=== PATIENT | female | born 1955 | race Caucasian/White ===

== ENCOUNTER 2017-03-24 09:21 | Inpatient (IN) | payer OTHER ==
[2017-03-25] MEDS ORDERED: TRANEXAMIC ACID 1,000 MG in NS 100 ML IV ONE (06:00)
[2017-03-25] MEDS ORDERED: BUPIVACAINE 0.25% 30 ML SDV ONE (10:00)
[2017-03-25] MEDS ORDERED: CHLORHEXIDINE GLUC HIBICLENS 118 ML BTL TP ONE (10:00)
[2017-03-25] MEDS ORDERED: THROMBIN (BOVINE) 20,000 UNIT VIAL TP ONE ×2 (10:00→13:57)
[2017-03-25] MEDS ORDERED: BACITRACIN 50,000 UNITS/10 ML SYR IRR ONE (10:01)
[2017-03-25] MEDS ORDERED: CITRATE DEXTROSE SOLN 500 ML BAG ONE (10:01)
[2017-03-25] MEDS ORDERED: morphINE PF 5 MG/10 ML INJ IT ONE (10:25)
[2017-03-25] MEDS ORDERED: ceFAZolin 2 GM/DEXTROSE 100 ML IV ONE (10:25)
[2017-03-25] MEDS ORDERED: fentaNYL 100 MCG/2 ML INJ IT ONE (10:25)
[2017-03-25] MEDS ORDERED: LIDOCAINE 1% 2 ML INJ ID PRN (10:26)
[2017-03-25] MEDS ORDERED: LR 1,000 ML IV ONE (10:26)
[2017-03-25] MEDS ORDERED: VANCOMYCIN HCL/NORMAL SALINE 250 ML IV ONE (11:30)
[2017-03-25] MEDS ORDERED: MIDAZOLAM 2 MG/2 ML VIAL IVP ONE (12:07)
--- NOTE | 2017-03-25 12:07 | PDANEPAE ---
ANE History of Present Illness TLIF L3-4, hardware removal ANE Past Medical History - Cardiovascular History Hx Hypertension: No Hx Arrhythmias: No Hx Chest Pain: No Hx Coronary Artery / Peripheral Vascular Disease: No Hx CHF / Valvular Disease: No Hx Palpitations: No Cardiovascular History Comment: on Lipitor for HPL - Pulmonary History Hx COPD: No Hx Asthma/Reactive Airway Disease: No Hx Recent Upper Respiratory Infection: No Hx Oxygen in Use at Home: No Hx Sleep Apnea: No Sleep Apnea Screening Result - Last Documented: Negative - Neurologic History Hx Cerebrovascular Accident: No Hx Seizures: No Hx Dementia: No Neurologic History Comment: low back pain radiates down L leg to knee, occ below knee. Numbness noted L ouitside of knee, around ankle and top of L ft (s/ p L ankle sx) - Endocrine History Hx Diabetes: No Hypothyroid: Yes Endocrine History Comment: hypothyroid - Renal History Hx Renal Disorders: No - Liver History Hx Hepatic Disorders: No - Neurological & Psychiatric Hx Hx Neurological and Psychiatric Disorders: Yes - Cancer History Hx Cancer: No - Congenital Disorder History Hx Congenital Disorders: No - GI History GERD: no Hx Gastrointestinal Disorders: No - Other Health History Other Health History: none - Chronic Pain History Chronic Pain: Yes (back/L leg) - Surgical History Prior Surgeries: ORIF triple fx L [id number]. L4/L5 fusion . bilat Great toe sx. Lasik-1999 ANE Review of Systems Review of Systems: - Exercise capacity METS (RN): 4 METS ANE Patient History - Allergies Allergies/Adverse Reactions: Penicillins Allergy (Verified 03/11/17 10:54) Swelling/neck,face,throat - Home Medications Home Medications: Atorvastatin Calcium [Lipitor 20 mg (*)] 20 mg PO HS 03/07/17 [Last Taken Unknown] Hydrocodone/Acetaminophen [[place] 5/325 (*)] 1 each PO Q8HRS PRN 03/07/17 [Last Taken Unknown] Ibuprofen [Motrin (*)] 200 mg PO HS PRN 03/07/17 [Last Taken Unknown] LORazepam [Ativan (*)] 1 mg PO HS PRN 03/07/17 [Last Taken Unknown] Levothyroxine [Synthroid 50 mcg (*)] 50 mcg PO DAILY06 03/07/17 [Last Taken Unknown] - NPO status NPO Since - Liquids (Date): 03/25/17 NPO Since - Liquids (Time): 07:30 NPO Since - Solids (Date): 03/24/17 NPO Since - Solids (Time): 20:00 - Smoking Hx Smoking Status: Never smoked ANE Labs/Vital Signs - Vital Signs Blood Pressure: 137/78 Heart Rate: 75 Respiratory Rate: 16 O2 Sat (%): 94 Height: 167.64 cm Weight: 65.317 kg ANE Physical Exam - Airway Neck exam: FROM Mallampati Score: Class 1 Mouth exam: normal dental/mouth exam (Lower front implant) - Pulmonary Pulmonary: clear to auscultation - Cardiovascular Cardiovascular: regular rate and rhythym - ASA Status ASA Status: II ANE Anesthesia Plan Anesthesia Plan: general endotracheal anesthesia
[2017-03-25] MEDS ORDERED: fentaNYL 100 MCG/2 ML INJ ONE ×7 (12:30→17:52)
[2017-03-25] MEDS ORDERED: PROPOFOL/EMULSION 500 MG/50 ML BOTTLE IV ONE (12:30)
[2017-03-25] MEDS ORDERED: KETAMINE 100 MG/10 ML SYR ONE (12:30)
--- NOTE | 2017-03-25 12:31 | PDHPUP ---
History & Physical Update H&P update statement: This history and physical update is based on an assessment of the patient which was completed after admission or registration (within 24 hours), but prior to the surgery/procedure. H&P update: no change in patient's condition since H&P completed
[2017-03-25] MEDS ORDERED: ROCURONIUM 50 MG/5 ML VIAL ONE (12:32)
[2017-03-25] MEDS ORDERED: DEXAMETHASONE 4 MG/ML VIAL ONE (12:33)
[2017-03-25] MEDS ORDERED: PROPOFOL 200 MG/20 ML VIAL ONE (15:32)
[2017-03-25] MEDS ORDERED: ONDANSETRON 4 MG/2 ML VIAL ONE (15:44)
[2017-03-25] MEDS ORDERED: MAGNESIUM HYDROXIDE 30 ML UDCUP PO PRN (16:09)
[2017-03-25] MEDS ORDERED: LACTULOSE 20 GM/30 ML UDCUP PO PRN (16:09)
[2017-03-25] MEDS ORDERED: NALOXONE HCL 0.4 MG/ML INJ IVP PRN (16:09)
[2017-03-25] MEDS ORDERED: ONDANSETRON 4 MG/2 ML VIAL IVP PRN (16:09)
[2017-03-25] MEDS ORDERED: diphenhydrAMINE 25 MG CAP PO PRN (16:09)
[2017-03-25] MEDS ORDERED: morphINE PCA 30 MG/30 ML PCA IV PRN (16:09)
--- NOTE | 2017-03-25 16:09 | POSTOPPROG ---
Post Op Note Date of Operation: 03/25/17 Surgeon: Ramón Moody Ophthalmologist Retina Specialist: Zachary Anesthesiologist: Russel Valverde Anesthesia: GET(General Endotracheal) Pre-op Diagnosis: L3/4 DjD, Stenosis, HNP Post-op Diagnosis: same Indication: Low back pain and left leg pain Procedure: L4/5 Hardware removal, L3/4 tlif, L3-5 instrumentation Findings: L3/4 severe DJD, right sided HNP, Spinal stenosis Inf/Abcess present in the surg proc area at time of surgery?: No EBL: 100-500 Complications: none Drains: [place] (to bulb suction)
[2017-03-25] MEDS ORDERED: NS 1,000 ML IV SCH (16:15)
--- NOTE | 2017-03-25 16:20 | SOAPPROG ---
SOAP Progress Note Assessment/Plan: POST OP CHECK: Assessment: doing well s/p L3/4 TLIF and L4/5 Hardware removal and L3-5 instrumentation Plan: CPM in PACU, RAY to bulb suction transfer to floor per protocol Subjective: awake, alert, comfortable Objective: Vital Signs Temp Pulse Resp BP Pulse Ox 36.6 C 75 16 137/78 H 94 03/25/17 10:47 03/25/17 12:07 03/25/17 12:07 03/25/17 12:07 03/25/17 12:07 Neuro: ALLEN, Sens +LT Follows commands x 4 speech clear current Vitals: BP:105/58 HR: 94 02: 98% ICD10 Worksheet Patient Problems: Problems Problem Status Onset Degenerative disc disease Acute - ICD10 Problem Qualifiers (1) Degenerative disc disease Qualifiers: Spinal region: lumbar Qualified Code(s): M51.36 - Other intervertebral disc degeneration, lumbar region
[2017-03-25] MEDS ORDERED: HYDROmorphONE/DILAUDID 1 MG/ML INJ ONE (16:24)
[2017-03-25] MEDS: fentaNYL 100 MCG/2 ML INJ IVP PRN ×4 (16:28→17:52)
[2017-03-25] MEDS: HYDROmorphONE/DILAUDID 1 MG/ML INJ IVP PRN ×3 (16:30→17:10)
--- NOTE | 2017-03-25 17:38 | POSTANESTH ---
Post Anesthetic Evaluation Cardiovascular Status: Normal, Stable Respiratory Status: Normal, Stable Level of Consciousness/Mental Status: Can Participate in Eval Pain Control: Adequate, Prn Tx Ordered Nausea/Vomiting Control: Adequate, Prn Tx Ordered Complications Possibly Related to Anesthesia: None Noted
[2017-03-25] MEDS ORDERED: DIAZEPAM 10 MG/2 ML SYR ONE (17:42)
[2017-03-25] MEDS: DIAZEPAM 10 MG/2 ML SYR IVP PRN (17:43)
[2017-03-25] MEDS: POLYETHYLENE GLYCOL 3350 17 GM PKT PO SCH (20:19)
[2017-03-25] MEDS: METHOCARBAMOL 750 MG TAB PO PRN (20:20)
[2017-03-25] MEDS: SENNOSIDES/DOCUSATE SODIUM TAB PO SCH (20:20)
[2017-03-25] MEDS: ATORVASTATIN CALCIUM 20 MG TAB PO SCH (20:20)
[2017-03-25] MEDS: FAMOTIDINE 20 MG TAB PO SCH (20:20)
[2017-03-25] MEDS: oxyCODONE IR 5 MG TAB PO PRN (20:21)
[2017-03-25] MEDS: morphINE SR 15 MG TAB PO SCH (20:21)
[2017-03-25] MEDS: ACETAMINOPHEN 500 MG TAB PO SCH (20:22)
--- NOTE | 2017-03-25 23:15 | GOP ---
[f rep st] OPERATIVE REPORT DATE OF OPERATION: 03/25/2017 SURGEON: Ramón Moody MD NEUROSURGEON: Ramón Moody MD SUPPLY CONTROLLER: JOSEPH Dougherty ANESTHESIA: General endotracheal. PREOPERATIVE DIAGNOSIS: Severe adjacent level degeneration at L3-4 with critical spinal stenosis, st atus post prior L4-5 instrumented decompression and fusion. Retained hardware. Intractable back leslie n. Intractable left lower extremity radicular pain. Failed conservative care. POSTOPERATIVE DIAGNOSIS: Severe adjacent level degeneration at L3-4 with critical spinal stenosis, s tatus post prior L4-5 instrumented decompression and fusion. Retained hardware. Intractable back pa in. Intractable left lower extremity radicular pain. Failed conservative care. PROCEDURE PERFORMED: Removal of posterior nonsegmental (pedicle screw and Spire device) fixation at L4-5 with left-sided L3-4 far lateral transpedicular decompression and a redo left L4-5 posterior hem ilaminectomy and mesial facetectomy and foraminotomy. L3 through 5 posterior segmental (pedicle scre w) fixation and posterolateral fusion with local autograft and bone morphogenic protein. L3-4 observer electrical prospecting ior/transforaminal lumbar interbody fusion with 2 structural PEEK interbody spacers, local autograft and bone morphogenic protein. Use of intraoperative microscopy, fluoroscopy, and computer volumetric stereotactic navigation with intraoperative neurophysiologic testing. Injection of intrathecal narc otic analgesics for postoperative pain control. FINDINGS: ESTIMATED BLOOD LOSS: 250 cc. INDICATIONS: The patient is a 61-year-old woman with intractable back pain and left lower extremity radicular discomfort and bilateral neurogenic claudication. She has a prior instrumented L4-5 fusion with severe adjacent level degeneration and disk space collapse and critical spinal stenosis. She p resents now for removal and replacement of instrumentation and extension of fusion and decompression and stabilization after failing conservative care. DESCRIPTION OF PROCEDURE: After informed consent was obtained, patient was taken to the operating ro om and placed in the prone position on the [place] table. The lumbosacral area was prepped and drape d in a sterile fashion. After fluoroscopic localization of the correct levels, the subcutaneous and intramuscular tissues were infiltrated with local anesthesia. A midline linear incision was then cre ated from approximately L3 through L5. This was carried down to the fascial layer, which was then in cised using monopolar electrocautery and carried in a subperiosteal plane along the spinous processes and out the lamina bilaterally. The prior instrumentation at L4-5 was carefully removed in standard fashion. The prior fusion was explored and inspected. The microscope was brought in and a left-jamee ed far lateral transpedicular decompression was performed with complete unroofing of the facet joint at the L3-4 level and decompression of the L3 and L4 neural foramina. A redo posterior hemilaminecto my and foraminotomy were performed on the left at the L4-5 level under high-power microscopy. Follow ing adequate decompression, the wishkicker neuronavigational system was brought in and using computer vo lumetric stereotactic navigation, pedicle screws were placed at L3, L4, and L5 on the left and L3 and L4 on the right. The rods were then placed and secured under distraction at the L3-4 level during w hich time a complete diskectomy was performed with preparation of the endplates and placement of two 7 mm structural PEEK interbody spacers, local autograft, and bone morphogenic protein for an L3-4 pos terior/transforaminal lumbar interbody fusion. The screw and bert system were then placed in a slight amount of compression in order to facilitate bony union and to minimize the potential for posterior graft migration. The wound was copiously irrigated and after re-verification of good position of the screws, rods, and interbody spacers, 200 mcg of Duramorph along with 50 mcg of fentanyl were injecte d intrathecally. The subcutaneous and intramuscular tissues were re-infiltrated with local anesthesi a. The remaining lamina and facet joints on the right were extensively decorticated and the residual local autograft along with bone morphogenic protein was placed out laterally from L3 through L5 for posterolateral fusion from L3 through L5. A drain was placed and the wound was closed in a layered f ashion using interrupted Vicryl sutures followed by Steri-Strips on the skin. COMPLICATIONS: None. DISPOSITION: The patient is currently in the process of being repositioned for extubation. /[id number]/MODL
[2017-03-25] MEDS ORDERED: VANCOMYCIN HCL/NORMAL SALINE 250 ML IV SCH (23:30)
[2017-03-26] MEDS: oxyCODONE IR 5 MG TAB PO PRN ×6 (00:38→23:20)
[2017-03-26] MEDS: DIAZEPAM 10 MG/2 ML SYR IVP PRN (00:47)
[2017-03-26] MEDS: LEVOTHYROXINE 50 MCG TAB PO SCH (05:16)
[2017-03-26] MEDS: ACETAMINOPHEN 500 MG TAB PO SCH ×3 (05:16→22:34)
[2017-03-26] MEDS: METHOCARBAMOL 750 MG TAB PO PRN ×3 (05:16→23:19)
[2017-03-26 05:20] LABS: % IMMATURE GRANULYOCYTES 0.3 % (0.0-1.1); ABSOLUTE IMMATURE GRANULOCYTES 0.03 10^3/uL (0.00-0.10); ADD DIFF? NO; ADD MORPH? NO; ADD SCAN? NO; ATYPICAL LYMPHOCYTE FLAG 0 (0-99); FRAGMENT RBC FLAG 0 (0-99); HEMOGLOBIN 9.8 g/dL (12.6-16.3); LEFT SHIFT FLG 0 (0-99); LIPEMIA HEMOLYSIS FLAG 80 (0-99); MEAN CELL HEMOGLOBIN 31.4 pg (27.9-34.1); MEAN CELL HEMOGLOBIN CONCENTR. 32.7 g/dL (32.4-36.7); MEAN CELL VOLUME 96.2 fL (81.5-99.8); MEAN PLATELET VOLUME 9.7 fL (8.7-11.7); PLATELET CLUMPS FLAG 10 (0-99); PLATELET COUNT 210 10^3/uL (150-400); RED BLOOD CELL COUNT 3.12 10^6/uL (4.18-5.33); RED CELL DISTRIBUTION WIDTH 12.8 % (11.5-15.2)
[2017-03-26 05:40] LABS: ANION GAP 7 mEq/L (8-16); CALCIUM 8.9 mg/dL (8.5-10.4); CARBON DIOXIDE 22 mEq/l (22-31); CHLORIDE 103 mEq/L (97-110); CREATININE 0.8 mg/dL (0.6-1.0); GLOMERULAR FILTRATION RATE > 60; GLUCOSE 122 mg/dL (70-100); POTASSIUM 4.3 mEq/L (3.5-5.2); SODIUM 132 mEq/L (134-144)
--- NOTE | 2017-03-26 08:52 | SOAPPROG ---
SOAP Progress Note Assessment/Plan: Assessment: POD #1: doing well s/p L3/4 TLIF and L4/5 Hardware removal and L3-5 instrumentation Plan: Continue RAY to suction Lumbar xrays today PT/OT as tolerated encourage OOB frequently Lovenox starts today. follow up xrays. 03/26/17 08:49 03/26/17 08:52 Subjective: awake, alert, was up a lot last night. Objective: Vital Signs Temp Pulse Resp BP Pulse Ox 36.7 C 77 16 101/61 96 03/26/17 04:00 03/26/17 08:00 03/26/17 08:00 03/26/17 08:00 03/26/17 08:00 Laboratory Results 03/26/17 04:24 03/26/17 04:24 03/25/17 03/26/17 03/27/17 05:59 05:59 05:59 Intake Total 2804 Output Total 1710 Balance 1094 Neuro: ALLEN, sens +LT Dressing: CDI RAY: 210ml ICD10 Worksheet Patient Problems: Problems Problem Status Onset Degenerative disc disease Acute - ICD10 Problem Qualifiers (1) Degenerative disc disease Qualifiers: Spinal region: lumbar Qualified Code(s): M51.36 - Other intervertebral disc degeneration, lumbar region
[2017-03-26] MEDS: SENNOSIDES/DOCUSATE SODIUM TAB PO SCH ×2 (09:17→20:58)
[2017-03-26] MEDS: morphINE SR 15 MG TAB PO SCH ×2 (09:18→20:58)
[2017-03-26] MEDS: FAMOTIDINE 20 MG TAB PO SCH ×2 (09:18→20:58)
[2017-03-26] MEDS: ENOXAPARIN 40 MG/0.4 ML SYR SC SCH (09:19)
[2017-03-26] MEDS: POLYETHYLENE GLYCOL 3350 17 GM PKT PO SCH ×3 (09:20→22:34)
--- NOTE | 2017-03-26 16:15 | ASMTCMCOM ---
CM Note CM Note Notes: Pt had planned harware removal and TLIF. OT rec home, PT eval pending. CM to follow for d/c plan of care. Date Signed: 03/26/2017 04:14 PM Electronically Signed By:AUSTIN Castrejon
[2017-03-26] MEDS: ATORVASTATIN CALCIUM 20 MG TAB PO SCH (20:58)
[2017-03-27] MEDS: oxyCODONE IR 5 MG TAB PO PRN ×4 (03:00→22:44)
[2017-03-27] MEDS: LEVOTHYROXINE 50 MCG TAB PO SCH (05:58)
[2017-03-27] MEDS: ACETAMINOPHEN 500 MG TAB PO SCH ×3 (05:58→22:43)
[2017-03-27] MEDS: ENOXAPARIN 40 MG/0.4 ML SYR SC SCH (09:22)
[2017-03-27] MEDS: POLYETHYLENE GLYCOL 3350 17 GM PKT PO SCH ×3 (09:23→22:46)
[2017-03-27] MEDS: SENNOSIDES/DOCUSATE SODIUM TAB PO SCH ×2 (09:23→20:51)
[2017-03-27] MEDS: FAMOTIDINE 20 MG TAB PO SCH ×2 (09:23→20:49)
[2017-03-27] MEDS: morphINE SR 15 MG TAB PO SCH ×2 (09:23→20:49)
[2017-03-27] MEDS: ONDANSETRON DISINTEGRATING 4 MG TAB PO PRN ×3 (09:55→22:43)
--- NOTE | 2017-03-27 10:59 | NEUSURGPN ---
Assessment/Plan: POD #2: doing well s/p L3/4 TLIF and L4/5 Hardware removal and L3-5 instrumentation Plan: Continue RAY to suction- 160 output in last 24 hours Lumbar xrays show good hardware placement PT/OT encourage OOB frequently DVT prophy: TEDs, SCDs, Lovenox Dispo: Home tomorrow if clears therapies and doing well. Does not want to go home with drain. Discussed with Dr. Murrieta Subjective: Patient states she slept well last night. She was up with PT and OT yesterday and plans to be up more today. Left leg still has pain but is slowly improving.No BM yet. Objective: NAD, VSS Alert, awake BLE 5/5= Sensation intact to lt touch Incision dressing c/d/i - Physician Discussed Patient with DrItalo: Heidy Neurosurgery Physical Exam - Vitals, I&O, Labs I and O 03/26/17 03/27/17 03/28/17 05:59 05:59 05:59 Intake Total 2804 1850 Output Total 1710 2210 380 Balance 1094 -360 -380 Weight 65.317 kg Intake: Oral (ml) 750 1850 IV Intake (ml) 900 IV Infused (ml) 1154 Ns 1,000 ml @ 100 mls/hr 889 IV CONT BO Rx#: [id number] Vancomycin HCl/Normal 265 Saline 250 ml @ 250 mls/ hr IV Q12H BO Rx#: [id number] Output: Urine (ml) 1350 2050 350 Toilet 1350 2050 350 Estimated Blood Loss (ml) 150 RAY Drain Output (ml) 210 160 30 #1 Back [place] 210 160 30 Other: Intake Quantity Yes Yes Sufficient Number of Voids Toilet 1 1 1 Vital Signs Temp Pulse Resp BP Pulse Ox 36.7 C 85 16 119/64 96 03/27/17 08:00 03/27/17 08:00 03/27/17 08:00 03/27/17 08:00 03/27/17 08:00 Laboratory Results 03/26/17 04:24 03/26/17 04:24 ICD10 Worksheet Patient Problems: Problems Problem Status Onset Degenerative disc disease Acute
[2017-03-27] MEDS: METHOCARBAMOL 750 MG TAB PO PRN ×2 (11:43→18:31)
--- NOTE | 2017-03-27 14:47 | ASMTCMCOM ---
CM Note CM Note Notes: PT rec home. RODRICK Chavez has no concerns. Anticipate pt will d/c when medically stable, no CM d/c needs identified at this time. CM available for changes/needs. Date Signed: 03/27/2017 02:47 PM Electronically Signed By:AUSTIN Castrejon
[2017-03-27] MEDS: BISACODYL 10 MG SUPP PR PRN ×2 (15:00→18:23)
[2017-03-27] MEDS ORDERED: PROMETHAZINE HCL 25 MG/ML INJ IVP PRN (15:37)
[2017-03-27] MEDS ORDERED: PROCHLORPERAZINE MALEATE 5 MG TAB PO PRN (15:38)
[2017-03-27] MEDS: ATORVASTATIN CALCIUM 20 MG TAB PO SCH (20:51)
[2017-03-28] MEDS: ONDANSETRON DISINTEGRATING 4 MG TAB PO PRN ×2 (05:50→09:30)
[2017-03-28] MEDS: ACETAMINOPHEN 500 MG TAB PO SCH ×2 (05:50→15:17)
[2017-03-28] MEDS: LEVOTHYROXINE 50 MCG TAB PO SCH (05:50)
[2017-03-28] MEDS: oxyCODONE IR 5 MG TAB PO PRN ×4 (05:55→19:08)
--- NOTE | 2017-03-28 06:21 | SOAPPROG ---
SOAP Progress Note Assessment/Plan: Assessment: POD #3 doing well s/p L3/4 TLIF and L4/5 Hardware removal and L3-5 instrumentation Plan: repeat Na level this AM Continue RAY to suction Lumbar xrays show good hardware placement PT/OT encourage OOB frequently DVT prophy: TEDs, SCDs, Lovenox Dispo: Home today if clears therapies and doing well. 03/28/17 08:00 03/28/17 08:02 Subjective: awake, alert, comfortable Had BM yesterday as well as emesis x 2, but is feeling much better since doing so. Denies numbness, tingling or weakness today. She feels like she could go home today. Objective: Vital Signs Temp Pulse Resp BP Pulse Ox 37.0 C 84 18 111/61 94 03/27/17 23:17 03/27/17 23:17 03/27/17 23:17 03/27/17 23:17 03/27/17 23:17 Laboratory Results 03/26/17 04:24 03/26/17 04:24 03/27/17 03/28/17 03/29/17 05:59 05:59 05:59 Intake Total 1850 300 Output Total 2210 1695 Balance -360 -1395 NAD, VSS Alert, awake BLE 5/5= Sensation intact to lt touch Incision dressing c/d/i RAY:95ml ICD10 Worksheet Patient Problems: Problems Problem Status Onset Degenerative disc disease Acute - ICD10 Problem Qualifiers (1) Degenerative disc disease Qualifiers: Spinal region: lumbar Qualified Code(s): M51.36 - Other intervertebral disc degeneration, lumbar region
[2017-03-28] MEDS: POLYETHYLENE GLYCOL 3350 17 GM PKT PO SCH ×3 (09:11→22:05)
[2017-03-28] MEDS: ENOXAPARIN 40 MG/0.4 ML SYR SC SCH (09:11)
[2017-03-28] MEDS: SENNOSIDES/DOCUSATE SODIUM TAB PO SCH ×2 (09:11→22:05)
[2017-03-28] MEDS: FAMOTIDINE 20 MG TAB PO SCH ×2 (09:11→22:05)
[2017-03-28] MEDS: METHOCARBAMOL 750 MG TAB PO PRN ×3 (09:31→18:26)
[2017-03-28] MEDS: morphINE SR 15 MG TAB PO SCH ×2 (09:31→22:05)
[2017-03-28] MEDS: ATORVASTATIN CALCIUM 20 MG TAB PO SCH (22:05)
[2017-03-28] MEDS: ACETAMINOPHEN 650 MG/20.3 ML UDCUP PO SCH (22:07)
[2017-03-29] MEDS: LEVOTHYROXINE 50 MCG TAB PO SCH (05:17)
[2017-03-29] MEDS: ACETAMINOPHEN 650 MG/20.3 ML UDCUP PO SCH ×2 (05:17→13:30)
[2017-03-29] MEDS: oxyCODONE IR 5 MG TAB PO PRN ×4 (05:59→16:38)
[2017-03-29] MEDS: METHOCARBAMOL 750 MG TAB PO PRN (05:59)
--- NOTE | 2017-03-29 08:00 | NEUSURGPN ---
Assessment/Plan: POD #3: doing well s/p L3/4 TLIF and L4/5 Hardware removal and L3-5 instrumentation Plan: Continue RAY to suction, will d/c before going home today Lumbar xrays show good hardware placement PT/OT encourage OOB frequently DVT prophy: TEDs, SCDs, Lovenox Dispo: Home today vs tomorrow depending on she does with her diet and being up and out of bed. was given Rx prior to surgery Discussed with Dr. Murrieta Subjective: low back pain, nausea under better control Objective: NAD A&Ox3 MAEx4 5/ and equal in BUE and BLE. Incision c/d/i - Physician Discussed Patient with Dr.: Heidy Neurosurgery Physical Exam - Vitals, I&O, Labs I and O 03/28/17 03/29/17 03/30/17 05:59 05:59 05:59 Intake Total 300 350 Output Total 1695 130 Balance -1395 220 Intake: Oral (ml) 300 350 Output: Urine (ml) 1600 100 Toilet 1600 100 RAY Drain Output (ml) 95 30 #1 Back [place] 95 30 Other: Intake Quantity Yes Sufficient Number of Voids Toilet 2 2 Number of Stools Toilet 1 1 Vital Signs Temp Pulse Resp BP Pulse Ox 36.7 C 77 17 109/57 L 97 03/28/17 23:03 03/28/17 23:03 03/28/17 23:03 03/28/17 23:03 03/28/17 23:03 Laboratory Results 03/26/17 04:24 03/28/17 10:19 ICD10 Worksheet Patient Problems: Problems Problem Status Onset Degenerative disc disease Acute
[2017-03-29 08:45] VITALS: RESP 16
[2017-03-29] MEDS: FAMOTIDINE 20 MG TAB PO SCH (10:33)
[2017-03-29] MEDS: SENNOSIDES/DOCUSATE SODIUM TAB PO SCH (10:33)
[2017-03-29] MEDS: ENOXAPARIN 40 MG/0.4 ML SYR SC SCH (10:33)
[2017-03-29] MEDS: morphINE SR 15 MG TAB PO SCH (10:34)
[2017-03-29] MEDS: POLYETHYLENE GLYCOL 3350 17 GM PKT PO SCH ×2 (10:40→13:34)
[2017-03-29 15:11] VITALS: BP 115/66; PULSE 84; TEMP 97.7; O2SAT 95
[2017-03-29] MEDS: ONDANSETRON DISINTEGRATING 4 MG TAB PO PRN (16:37)
== END 2017-03-29 17:11 | disposition home or self-care (01) | DRG 460 ==
LOC: OBSVTOIN 03-25 10:09 → F3N 03-25 10:09 → PREINTOOBSV 03-25 14:14 → F3N 03-25 18:03
PROVIDERS: ADMIT Neurological Surgery; ATTEND Neurological Surgery
PROC: 0SG00A1 (ICD-10-PCS; principal; 2017-03-25 12:00)
PROC: 01NB0ZZ Release Lumbar Nerve, Open Approach (ICD-10-PCS; principal; 2017-03-25 12:00)
PROC: 3E0U0GB Introduction of Recombinant Bone Morphogenetic Protein into Joints, Open Approach (ICD-10-PCS; principal; 2017-03-25 12:00)
PROC: 0QP004Z Removal of Internal Fixation Device from Lumbar Vertebra, Open Approach (ICD-10-PCS; principal; 2017-03-25 12:00)
DX: M48.06 Spinal stenosis, lumbar region (principal); M51.16 Intervertebral disc disorders with radiculopathy, lumbar region; Z98.1 Arthrodesis status
CPT/HCPCS: 97116-GP; 97161-GP; 97165-GO; 97530-GP; C1713; J0171; J1100; J1170; J1650; J2250; J2274; J2405; J2704; J3010; J3370; J7060